=== PATIENT | female | born 1950 | race Caucasian/White ===

== ENCOUNTER 2024-09-09 13:11 | Emergency (ER) | payer OTHER ==
[~2024-09-09] VITALS: Ht 165.1 cm; Wt 96.0 kg
[2024-09-09 13:36] VITALS: BP 189/79; PULSE 60; RESP 18; O2SAT 96
--- NOTE | 2024-09-12 06:44 | ECG ---
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
== END 2024-09-09 15:00 | disposition home or self-care (01) ==
LOC: ER 13:11
DX: R06.02 Shortness of breath (principal)
CPT/HCPCS: 93005